=== PATIENT | female | born 1990 | race Caucasian/White ===

== ENCOUNTER 2016-10-31 11:54 | Emergency (ER) | payer OTHER ==
[~2016-10-31] VITALS: Wt 122.5 kg
[~2016-10-31 11:54] MED LIST: HYDROCODONE BIT1 T11 PO; MOTRIN800 MG PO
== END 2016-10-31 14:22 | disposition home or self-care (01) ==
LOC: ED 11:54
DX: S82.001A Unspecified fracture of right patella, initial encounter for closed fracture (principal); V86.59XA Driver of other special all-terrain or other off-road motor vehicle injured in nontraffic accident, initial encounter; Y93.89 Activity, other specified; Y92.413 State road as the place of occurrence of the external cause; Y99.9 Unspecified external cause status

== ENCOUNTER 2021-10-12 12:43 | Emergency (ER) | payer OTHER ==
[~2021-10-12] VITALS: Ht 167.6 cm; Wt 111.1 kg
[2021-10-12] MEDS ORDERED: DOXEPIN25 MG PO (13:17)
[2021-10-12] MEDS ORDERED: VISTARIL25 MG PO (13:17)
[2021-10-12] MEDS ORDERED: Wellbutrin Sr100 MG PO (13:18)
[2021-10-12 16:31] LABS: BILIRUBIN Negative (Negative); BLOOD 3+ (Negative); CLARITY Cloudy (Clear); COLOR Yellow (Yellow); GLUCOSE Negative (Negative); KETONE Trace (Negative); LEUKO ESTERASE Trace (Negative); NITRITE Negative (Negative); PH 5.5 (4.5-8.0); SPECIFIC GRAVITY >= 1.030 (1.001-1.030)
[2021-10-12 16:49] LABS: RBC 31-40 rbc/hpf (0-2)
[2021-10-12 16:50] LABS: BACTERIA 4+; EPITHELIAL CELLS 21-30; MUCOUS 2+
[2021-10-12] MEDS ORDERED: CEFUROXIME AXE500 MG PO (17:31)
== END 2021-10-12 17:20 | disposition home or self-care (01) ==
LOC: ED 12:43
PROVIDERS: Physician Assistant
DX: N39.0 Urinary tract infection, site not specified (principal); Z79.899 Other long term (current) drug therapy